=== PATIENT | male | born 1950 | race Caucasian/White ===

== ENCOUNTER 2023-05-23 16:03 | Emergency (ER) | payer MEDICARE ==
[~2023-05-23] VITALS: Ht 177.8 cm; Wt 129.7 kg
[2023-05-23] MEDS ORDERED: KETOROLAC TROMETHAMINE 30 MG/ML VIAL IV STA (16:54)
[2023-05-23] MEDS ORDERED: ONDANSETRON HCL INJ 2MG/ML 2ML 2 MG/ML VIAL IV STA (16:54)
[2023-05-23 17:17] LABS: BASOPHILS % 0.4 % (0.0-1.0); EOSINOPHILS # (AUTO) 0.2 (0.0-0.4); HEMATOCRIT 39.1 % (38.2-49.6); LYMPHOCYTES # (AUTO) 0.8 (1.0-3.2); LYMPHOCYTES % 9.4 % (18.0-39.1); MEAN CORPUSCULAR HEMOGLOBIN 29.8 pg (28-32); MEAN CORPUSCULAR HGB CONC 33.2 g/dL (31-35); MEAN CORPUSCULAR VOLUME 89.7 fL (81-99); MONOCYTES # (AUTO) 0.7 (0.2-0.8); MONOCYTES % 8.2 % (4.4-11.3); NEUTROPHILS # (AUTO) 6.3 (2.1-6.9); NEUTROPHILS % 78.6 % (38.7-80.0); PLATELET COUNT 176 x10e3/uL (140-360); RED BLOOD COUNT 4.36 x10e6/uL (4.3-5.7); RED CELL DISTRIBUTION WIDTH 13.3 % (11.7-14.4)
[2023-05-23 17:40] LABS: ALBUMIN 3.4 g/dL (3.5-5.0); ALBUMIN/GLOBULIN RATIO 1.1 (0.8-2.0); ANION GAP 13.3 mmol/L (8-16); CALCIUM 9.4 mg/dL (8.4-10.2); CREATININE, SERUM 1.59 mg/dL (0.72-1.25); POTASSIUM 4.3 mmol/L (3.5-5.1)
[2023-05-23] MEDS ORDERED: KETOROLAC TROMETHAMINE 30 MG/ML VIAL ONE (18:04)
[2023-05-23] MEDS ORDERED: ONDANSETRON HCL INJ 2MG/ML 2ML 2 MG/ML VIAL ONE (18:04)
[2023-05-23] MEDS ORDERED: SODIUM CHLORIDE 0.9% 1000ML 1,000 ML ONE (18:11)
[2023-05-23] MEDS ORDERED: SODIUM CHLORIDE 0.9% 1000ML 1,000 ML IV ONE (18:15)
[2023-05-23] MEDS ORDERED: FLOMAX0.4 MG PO (19:19)
[2023-05-23] MEDS ORDERED: BACTRIM DS TAB1 EACH PO (19:19)
[2023-05-23 19:36] LABS: COLOR,URINE BROWN (YELLOW)
[2023-05-23 19:40] LABS: CLARITY,URINE CLOUDY (CLEAR); LEUKOCYTE ESTERASE ,URINE NEGATIVE (NEGATIVE); NITRITE,URINE NEGATIVE (NEGATIVE); PROTEIN,URINE DIPSTICK 2+ (NEGATIVE)
[2023-05-23 19:41] LABS: BACTERIA,URINE FEW /HPF; EPITHELIAL CELLS,URINE RARE /LPF; KETONES,URINE TRACE (NEGATIVE); RBC,URINE >50 /HPF (0-5); URINE UROBILINOGEN 0.2 mg/dL (0.2 - 1); WBC,URINE (MAN) 0-5 /HPF (0-5)
[2023-05-23 19:56] VITALS: BP 124/67; PULSE 98; RESP 18; TEMP 98; O2SAT 100
[2023-05-29] MEDS ORDERED: SPIRONOLACTONE1 EACH PO (14:00)
[2023-05-29] MEDS ORDERED: METFORMIN HCL500 M2 PO (14:00)
[2023-05-29] MEDS ORDERED: LOSARTAN POTASS25 MG PO (14:00)
[2023-05-29] MEDS ORDERED: CARVEDILOL12.5 MG PO (14:00)
[2023-05-29] MEDS ORDERED: JANUVIA25 MG PO (14:00)
[2023-05-29] MEDS ORDERED: HYDRALAZINE HCL25 MG PO (14:00)
[2023-05-29] MEDS ORDERED: SIMVASTATIN40 MG PO (14:00)
[2023-05-29] MEDS ORDERED: VITAMIN C1000 MG PO (14:00)
== END 2023-05-23 19:57 | disposition home or self-care (01) ==
LOC: ER 17:35
DX: N13.2 Hydronephrosis with renal and ureteral calculous obstruction (principal); R31.9 Hematuria, unspecified
CPT/HCPCS: 36415; 74176; 80053; 81001; 85025; 99284; J1885; J2405; J7030

== ENCOUNTER 2025-08-02 10:21 | Emergency (ER) | payer MEDICARE ==
[~2025-08-02] VITALS: Ht 177.8 cm; Wt 129.7 kg
[~2025-08-02 10:21] MED LIST: BACTRIM DS TAB1 EACH PO; CARVEDILOL12.5 MG PO; FLOMAX0.4 MG PO; HYDRALAZINE HCL25 MG PO; JANUVIA25 MG PO; LOSARTAN POTASS25 MG PO; METFORMIN HCL500 M2 PO; SIMVASTATIN40 MG PO; SPIRONOLACTONE1 EACH PO; VITAMIN C1000 MG PO
[2025-08-02 10:43] VITALS: TEMP 98.2
[2025-08-02 12:30] VITALS: PULSE 68; RESP 18; O2SAT 100
== END 2025-08-02 12:55 | disposition home or self-care (01) ==
LOC: ER 11:14
DX: I44.0 Atrioventricular block, first degree (principal); I10 Essential (primary) hypertension; E11.9 Type 2 diabetes mellitus without complications; E78.5 Hyperlipidemia, unspecified; R94.31 Abnormal electrocardiogram [ECG] [EKG]; Z87.442 Personal history of urinary calculi
CPT/HCPCS: 93005; 99282